=== PATIENT | female | born 1955 | race Caucasian/White ===

== ENCOUNTER 2019-11-04 22:28 | Inpatient (IN) | payer OTHER, MEDICAID ==
[~2019-11-04] VITALS: Ht 165.1 cm; Wt 116.4 kg
[2019-11-04 22:32] VITALS: BP 118/77
[2019-11-04] MEDS ORDERED: DRIZALMA SPRINK60 MG PO (22:39)
[2019-11-04] MEDS ORDERED: LEVO-T100 MCG PO (22:40)
[2019-11-04] MEDS ORDERED: TRADJENTA5 MG (22:40)
[2019-11-04] MEDS ORDERED: PRINIVIL20 MG PO (22:41)
[2019-11-04] MEDS ORDERED: SINGULAIR 10 MG10 M1 PO (22:42)
[2019-11-04] MEDS ORDERED: PRAMIPEXOLE ER1.5 MG PO (22:42)
[2019-11-04] MEDS ORDERED: FLEXERIL PO (22:42)
[2019-11-04 23:45] LABS: ABSOLUTE BASOPHILS 0.1 thou/uL (0.0-0.2); ABSOLUTE EOSINOPHILS 0.6 thou/uL (0.0-0.7); ABSOLUTE MONOCYTES 1.6 thou/uL (0.0-1.2); ABSOLUTE NEUTROPHILS 9.9 thou/uL (1.6-8.1); BASOPHILS 0.7 %; HEMATOCRIT 41.4 % (37.0-47.0); HEMOGLOBIN 13.6 gm/dL (12.0-15.0); LYMPHOCYTES 14.4 %; MCH 25.9 pg (26.0-34.0); MCHC 32.8 g/dL (28.0-37.0); MCV 79.1 fL (80.0-100.0); MPV 8.9 fl. (7.2-11.1); NUCLEATED RBCS 0 /100WBC; PLATELET COUNT* 299 thou/uL (150-400); POLYS 69.9 %; RBC 5.24 mil/uL (4.20-5.00); RDW-CV 17.5 % (10.5-14.5); WBC 14.2 thou/uL (4.0-11.0)
[2019-11-04 23:48] LABS: CREATININE 1.1 mg/dL (0.6-1.3); POTASSIUM 3.8 mmol/L (3.5-5.1)
[2019-11-04 23:50] LABS: INR 1.1
[2019-11-05 00:05] LABS: ALBUMIN 3.3 g/dL (3.4-5.0); MAGNESIUM 2.1 mg/dL (1.8-2.4); TOTAL BILIRUBIN 0.5 mg/dL (<0.1-1.0); TOTAL PROTEIN 7.1 g/dL (6.4-8.2)
[2019-11-05 03:19] LABS: URINE BLOOD NEGATIVE (Negative); URINE CLARITY CLEAR; URINE COLOR YELLOW; URINE GLUCOSE-RANDOM NEGATIVE (Negative); URINE KETONES NEGATIVE (Negative); URINE LEUKOCYTES-REFLEX NEGATIVE (Negative); URINE NITRITE-REFLEX NEGATIVE (Negative); URINE PROTEIN NEGATIVE (Negative); URINE SPECIFIC GRAVITY >= 1.030 (1.005-1.030); URINE UROBILINOGEN 0.2 E.U./dl (0.2-1.0)
[2019-11-05 03:22] LABS: URINE BILIRUBIN 1+ (Negative)
[2019-11-05 03:24] LABS: ICTOTEST (BILI CONFIRMATORY) Negative (Negative)
[2019-11-05 03:27] LABS: AMP/METHAMP Negative (Negative); BARBITURATES Negative (Negative); BENZODIAZEPINES Negative (Negative); COCAINE Negative (Negative); METHADONE Negative (Negative); OPIATES Negative (Negative); PCP Negative (Negative); THC Negative (Negative)
[2019-11-05 06:00] VITALS: BP 117/58
[2019-11-05 06:00] LABS: BE -3.9 mmol/L (-2 to +3)
[2019-11-05 06:04] LABS: PCO2 64.1 mmHg (35.0-45.0); PO2 146.3 mmHg (75.0-100.0); pH 7.209 (7.340-7.450)
[2019-11-05 09:25] LABS: BE 1.9 mmol/L (-2 to +3); PCO2 VENOUS 68.1 mmHg (41.0-51.0); PO2 VENOUS 29.9 mmHg (35.0-45.0)
[2019-11-05 09:42] LABS: CALCIUM 8.8 mg/dL (8.5-10.1); MAGNESIUM 2.1 mg/dL (1.8-2.4); POTASSIUM 4.6 mmol/L (3.5-5.1)
[2019-11-05 10:00] VITALS: BP 197/173
--- NOTE | 2019-11-05 13:24 | EKG ---
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 : 1955 Requested By: Pamela Montano Order Number: [id number] MD: Arsenio Barney Measurements Intervals [place] Rate: 94 P: 35 NM: 148 QRS: 21 QRSD: 96 T: -4 QT: 370 QTc: 463 Interpretive Statements Sinus rhythm Abnormal R-wave progression, early transition consider Inferior infarct, old No previous ECG available for comparison Electronically Signed On 11-05-2019 13:24:19 CDT by Arsenio Barney [email or web address] <ELECTRONICALLY SIGNED> By: Arsenio Barney MD, FAC 11/05/19 1324 2256 2256 Arsenio Barney MD, [facility] /EPI
--- NOTE | 2019-11-05 14:16 | 2DMMODE ---
[place] [address] 2 D/M-MODE ECHOCARDIOGRAM Name: MARENTYLER Aceves Room: [address] IN [facility]#: [id number] Admission: 11/05/19 Attend Phys: Maral Winkler, Discharge: Date of : 51 Date of Service: 11/05/19 1416 Report #: [id number] THIS REPORT FOR: cc: Essie Grewal MD, Sarah Beth MD Liston, Michael J. MD [facility] ~ APPROVED REPORT Study performed: 11/05/2019 09:58:15 EXAM: Comprehensive 2D, Doppler, and color-flow Echocardiogram Patient Location: In-Patient Room #: er Status: routine BSA: 2.22 HR: 100 bpm BP: 113/47 mmHg Rhythm: NSR Other Information Study Quality: Good Indications Dyspnea 2D Dimensions IVSd: 10.50 (7-11mm) LVOT Diam: 19.84 (18-24mm) LVDd: 44.52 mm PWd: 9.53 (7-11mm) Ascending Ao: 32.20 (22-36mm) LVDs: 26.78 (25-40mm) Aortic Root: 31.43 mm Volumes Left Atrial Volume (Systole) LA ESV Index: 19.30 mL/m2 Aortic Valve AoV Peak Diego.: 1.46 m/s AO Peak Gr.: 8.53 mmHg LVOT Max P.59 mmHg AO Mean Gr.: 4.55 mmHg LVOT Mean P.95 mmHg LVOT Max V: 1.28 m/s AO V2 VTI: 26.46 cm LVOT Mean V: 0.94 m/s MAHNAZ (VTI): 2.84 cm2 LVOT V1 VTI: 24.29 [place] [address] 2 D/M-MODE ECHOCARDIOGRAM Name: TYLER ENGEL Room: [address] IN [facility]#: [id number] Admission: 11/05/19 Attend Phys: Maral Winkler, Discharge: Date of : 51 Date of Service: 11/05/19 1416 Report #: [id number] TDI Medial E' Diego.: 0.09 m/s Lateral E' Diego.: 0.12 m/s Pulmonary Valve PV Peak Diego.: 1.11 m/s PV Peak Gr.: 4.89 mmHg Tricuspid Valve RAP Estimate: 5.00 mmHg TR Peak Gr.: 23.98 mmHg RVSP: 29.00 mmHg PA Pressure: 29.00 mmHg Left Ventricle The left ventricle is normal size. There is normal LV segmental wall motion. There is normal left ventricular wall thickness. Left ventricular systolic function is normal. LVEF is 60-65%. Transmitral Doppler flow pattern suggests impaired LV relaxation. Right Ventricle The right ventricle is normal size. The right ventricular systolic function is normal. Atria The left atrium size is normal. The right atrium size is normal. Aortic Valve The aortic valve is normal in structure. No aortic regurgitation is present. There is no aortic valvular stenosis. Mitral Valve The mitral valve is normal in structure. There is no mitral valve regurgitation noted. No evidence of mitral valve stenosis. Tricuspid Valve The tricuspid valve is normal in structure. Trace tricuspid regurgitation. No pulmonary hypertension. Pulmonic Valve The pulmonary valve is normal in structure. There is no pulmonic valvular regurgitation. Great Vessels The aortic root is normal in size. IVC is normal in size and collapses >50% [place] [address] 2 D/M-MODE ECHOCARDIOGRAM Name: TYLER ENGEL Room: [address]#: [id number] Admission: 11/05/19 Attend Phys: Maral Winkler, Discharge: Date of : 51 Date of Service: 11/05/19 1416 Report #: [id number] Pericardium There is no pericardial effusion. <Conclusion> The left ventricle is normal size. There is normal left ventricular wall thickness. Left ventricular systolic function is normal. LVEF is 60-65%. Transmitral Doppler flow pattern suggests impaired LV relaxation. Trace tricuspid regurgitation. No pulmonary hypertension. IVC is normal in size and collapses >50% with inspiration. <ELECTRONICALLY SIGNED> By: Yousif Brito MD, FACC 11/05/19 141 15 15 Yousif Brito MD, FACC /INF
[2019-11-05 14:44] VITALS: BP 119/63
[2019-11-05 16:25] VITALS: BP 107/63
[2019-11-05 16:40] VITALS: BP 132/68
[2019-11-05 20:00] VITALS: BP 108/57
[2019-11-06] VITALS (7 sets, daily range): BP systolic 87–144; BP diastolic 41–106
[2019-11-06 04:27] LABS: HEMATOCRIT 36.9 % (37.0-47.0); HEMOGLOBIN 11.9 gm/dL (12.0-15.0); MCH 25.8 pg (26.0-34.0); MCHC 32.3 g/dL (28.0-37.0); MCV 80.1 fL (80.0-100.0); MPV 8.7 fl. (7.2-11.1); RBC 4.6 mil/uL (4.20-5.00); RDW-CV 17.8 % (10.5-14.5)
[2019-11-06 04:39] LABS: CALCIUM 8.5 mg/dL (8.5-10.1); CREATININE 0.8 mg/dL (0.6-1.3); MAGNESIUM 2.1 mg/dL (1.8-2.4); POTASSIUM 4.7 mmol/L (3.5-5.1)
[2019-11-06 05:28] LABS: BE 0 mmol/L (-2 to +3); PCO2 48.1 mmHg (35.0-45.0); PO2 92.8 mmHg (75.0-100.0); pH 7.352 (7.340-7.450)
--- NOTE | 2019-11-06 14:05 | CON ---
[address] [address] CONSULTATION Name: TYLER ENGEL Ketan Room: [address] IN .#: [id number] Admission: 11/05/19 Attend Phys: Maral Winkler MD Discharge: Date of : 51 Report #: [id number] THIS REPORT FOR: //name// cc: Essie Grewal MD, Sarah Beth MD ~ THIS REPORT FOR: //name// CC: Maral Grewal DATE OF SERVICE: 11/06/2019 REQUESTING PHYSICIAN: Calvin Das MD INDICATION FOR CONSULTATION: Yiijs-nu-petbzer hypercarbic respiratory failure. HISTORY OF PRESENT ILLNESS: This is a 63-year-old female. She is a lifetime nonsmoker. She does have a history of bronchial asthma. I do not have all her previous records available; however, it appears that she has obstructive sleep apnea as well as obesity hypoventilation syndrome as well. There is mention of COPD on the records; however, I do not see any definite evidence of COPD. The patient is now admitted yesterday, presentation is with a syncopal episode as well as altered mental status. The patient had reported associated nausea and dizziness as well and was initially reported to be confused upon waking up. The patient did have an arterial blood gas performed when she was brought to this hospital, which does show a pH reduced to only 7.209 with a pCO2 of 64. The patient was placed on a BiPAP. The patient's pH has normalized by this morning with the use of BiPAP with pCO2 now at 48. She is now back on nasal cannula. At this time, she reports significant improvement in her complaints since yesterday. She, however, does not have full recollection of events from yesterday. She says that she has more shortness of breath compared with her baseline; however, this is better than yesterday. She does not have any increase in cough compared with her baseline. There is no sputum. There is no chest pain. She did not have upper respiratory complaints. There is no swelling of lower extremities. There is no calf pain. She says that her legs are fidgety and she was continuously moving her legs during my exam. The patient has had some occasional joint pains, which remain at baseline. REVIEW OF SYSTEMS: I asked her 12 other questions for review of systems. The patient's review of systems is negative except as mentioned above with the exception that the patient does have significant disturbed sleep at night as well as sleepiness during the day. PAST MEDICAL HISTORY: Bronchial asthma, obstructive sleep apnea, obesity hypoventilation syndrome. There is mention of COPD on her records; [place], [place] [address] CONSULTATION Name: TYLER ENGEL Room: [address] IN ..#: [id number] Admission: 11/05/19 Attend Phys: Maral Winkler MD Discharge: Date of : 51 Report #: [id number] do not see any definite evidence of COPD. The patient reports that she has recently had a PET scan based on which she was recommended a lung biopsy. Diabetes, questionable history of dementia, morbid obesity with a body mass index elevated to 43, hypothyroidism. SOCIAL HISTORY: She is a lifetime nonsmoker. No known history of heavy alcohol use or illegal drug use. FAMILY HISTORY: There is no pertinent family history. CURRENT MEDICATIONS: The list is in [employer], reviewed. HOME MEDICATIONS: The list also in [employer], reviewed. ALLERGIES: SHE IS REPORTED TO BE ALLERGIC TO AUGMENTIN. PHYSICAL EXAMINATION: GENERAL: She was lying down in bed and was having lunch, was fully awake and was not confused at this time. She was continuously moving her legs. VITAL SIGNS: Pulse of 93 and a blood pressure of 103/58, she is oxygenating in the mid 90s, she is on 2 liters nasal cannula, heart rate is 93. She is afebrile with a temperature of 36.8. HEENT: Head is normocephalic and atraumatic. She has a narrow airway. NECK: Does not show raised JVP, asymmetry, mass or lymph nodes. CHEST: Symmetrical expansion on inspection and palpation. On auscultation, breath sounds are bilaterally equal, decreased, expirations are prolonged. I do not hear any added sounds. HEART: Regular. There is no murmur. ABDOMEN: Soft and nontender. EXTREMITIES: Lower extremities show no edema and no calf tenderness. There is some evidence of chronic venous insufficiency. There are some small varicose veins noted. NEUROLOGICAL: She is moving all extremities bilaterally equally and spontaneously. There is no focal deficit identified. The patient does, however, continuously move her legs. SKIN: Dry, intact but has chronic venous changes LABORATORY DATA: The patient's CTA chest was performed yesterday. I reviewed both the reports as well as the films. There are bilateral radiopaque densities at bilateral lung bases. There are also chronic changes noted at apices, more on the right side than the left. There is a nodular density noted in the right lung field at around image 16 or 17 in series 4. The patient had a CT head, CT cervical spine as well as carotid Dopplers as well. These are all in [employer], reviewed all of these reports. The patient's CBC as well as chemistries are in [facility] and these are reviewed. Coagulation studies also in [facility] reviewed. Arterial blood gases as well as venous blood gas in [facility] [place] [address] CONSULTATION Name: TYLER ENGEL Ketan Room: [address] IN [facility]#: [id number] Admission: 11/05/19 Attend Phys: Maral Winkler MD Discharge: Date of : 51 Report #: [id number] as discussed above. Toxicology screen was negative. Urinalysis as well as COVID-19 screen with antigen in [facility] reviewed. ASSESSMENT AND PLAN: 1. Efozx-pq-wejfmca hypoxemic and hypercarbic respiratory failure. The patient has a history of obstructive sleep apnea and obesity hypoventilation syndrome as well as bronchial asthma in the background. The etiology of her decompensation yesterday is not fully defined at this time. The presentation, however, is consistent with either a neurological event or secondary to medication intake, less likely arrythmia. The patient's toxicology screen, however, is negative and while some of the medications she takes at home disease have a sedative effect, she does not report any change in medications yesterday. 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 2. Obstructive sleep apnea with obesity hypoventilation syndrome. The patient has a CPAP at home for the last 7 years. The patient does not appear to be using it. Also considering elevation in pCO2 on her last arterial blood gas, which appears to be now at her baseline, it does not appear likely to me that we will be able to obtain a full controlled with the use of CPAP. Therefore, I requested the case operator to arrange a Trilogy for her 3. Bronchial asthma. It does appear to me that the patient has had some bronchospasm and therefore, I will go ahead and start her on scheduled nebulized bronchodilators. She is on prednisone, change this to a taper and did order one dose of Solu-Medrol as well. I do not see any definite evidence of chronic obstructive pulmonary disease. 4. Lung nodule/apical scarring as see discussion above. There is a nodular structure in the right apex. The patient reports having had a PET scan. If the PET scan was positive in this region, then this could be an indication for doing a biopsy; however, I do not have the records available. We will request the records. 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 The patient reports that she sees Dr. Gifford. 5. Pulmonary infiltrates/atelectasis. There are bibasilar densities on her CT chest, which could indicate areas of atelectasis as well as infiltrates. I went ahead and ordered 5 doses of Zithromax. 6. Syncopal episode/altered mental status, etiology of the episode yesterday is not fully defined at this time. A neurological consult can be a consideration, I would defer to the primary service and arrhythmia could be a less likely, possible etiology of these complaints, however, I have not been informed of any arrhythmias detected on her telemetry since yesterday. 7. Chronic venous insufficiency. Recommend also obtaining venous Dopplers. [address] [address] CONSULTATION Name: TYLER ENGEL Room: [address] IN [facility].#: [id number] Admission: 11/05/19 Attend Phys: Maral Winkler MD Discharge: Date of : 51 Report #: [id number] The patient has had an echocardiogram performed and this is reviewed and shows a left ventricular ejection fraction of 60-65% with some diastolic dysfunction, but without significant elevation in right heart pressures. 8. Deep venous thrombosis prophylaxis, Lovenox. Thanks for this consultation. <ELECTRONICALLY SIGNED> By: Pete Verdin MD 11/06/19 1405 1250 [id number] Verdin MD /nt
[2019-11-07] VITALS: BP 115/49
[2019-11-07 04:00] VITALS: BP 151/78
[2019-11-07 09:00] VITALS: BP 156/58
[2019-11-07 13:22] VITALS: BP 94/66
[2019-11-07 17:10] VITALS: BP 116/57
[2019-11-07 20:25] VITALS: BP 88/52
[2019-11-08] VITALS (7 sets, daily range): BP systolic 103–143; BP diastolic 48–100
[2019-11-08 05:04] LABS: HEMATOCRIT 37.9 % (37.0-47.0); HEMOGLOBIN 12.4 gm/dL (12.0-15.0); MCH 26.2 pg (26.0-34.0); MCHC 32.7 g/dL (28.0-37.0); MCV 80.1 fL (80.0-100.0); MPV 9.3 fl. (7.2-11.1); NUCLEATED RBCS 0 /100WBC; PLATELET COUNT* 246 thou/uL (150-400); RBC 4.73 mil/uL (4.20-5.00); RDW-CV 17.1 % (10.5-14.5); WBC 13.8 thou/uL (4.0-11.0)
[2019-11-08 05:52] LABS: CALCIUM 9.5 mg/dL (8.5-10.1); CREATININE 0.9 mg/dL (0.6-1.3); MAGNESIUM 1.7 mg/dL (1.8-2.4); POTASSIUM 4.7 mmol/L (3.5-5.1); TOTAL BILIRUBIN 0.4 mg/dL (<0.1-1.0); TOTAL PROTEIN 6.9 g/dL (6.4-8.2)
[2019-11-08 06:46] LABS: ABSOLUTE LYMPHOCYTES 2.1 thou/uL (0.8-5.3); ABSOLUTE MONOCYTES 0.3 thou/uL (0.0-1.2); ABSOLUTE NEUTROPHILS 11.5 thou/uL (1.6-8.1); PLATELET ESTIMATE ADEQUATE
[2019-11-08] MEDS ORDERED: WELLBUTRIN 75 M75 M1 PO (08:54)
[2019-11-08] MEDS ORDERED: PREDNISONE 10 M10 MG PO (08:54)
[2019-11-08] MEDS ORDERED: TRAZODONE HCL100 MG PO (08:54)
[2019-11-08] MEDS ORDERED: HYDROXYZINE HCL25 M2 PO (08:54)
[2019-11-08] MEDS ORDERED: AZITHROMYCIN500 MG PO (08:54)
[2019-11-08] MEDS ORDERED: MIRAPEX 0.250.25 M1 PO (08:54)
[2019-11-08] MEDS ORDERED: BUPROPION XL300 MG PO (12:45)
== END 2019-11-08 14:24 | disposition home health service (06) | DRG 91 ==
LOC: M.ERS 22:28 → M.TBA-ER 11-05 02:11 → M.2W 11-05 09:47 → M.TBA-ER 11-05 09:47 → M.2W 11-05 16:38
PROVIDERS: Emergency Medicine; Internal Medicine; Internal Medicine Critical Care Medicine; ADMIT Internal Medicine; ATTEND Internal Medicine
PROC: 5A09357 Assistance with Respiratory Ventilation, Less than 24 Consecutive Hours, Continuous Positive Airway Pressure (ICD-10-PCS; principal; 2019-11-05)
PROC: 5A09357 Assistance with Respiratory Ventilation, Less than 24 Consecutive Hours, Continuous Positive Airway Pressure (ICD-10-PCS; 2019-11-06)
PROC: 5A09357 Assistance with Respiratory Ventilation, Less than 24 Consecutive Hours, Continuous Positive Airway Pressure (ICD-10-PCS; 2019-11-08)
DX: G92 Toxic encephalopathy (principal); J96.22 Acute and chronic respiratory failure with hypercapnia; J96.21 Acute and chronic respiratory failure with hypoxia; E87.2 Acidosis; J98.11 Atelectasis; E66.2 Morbid (severe) obesity with alveolar hypoventilation; Z68.41 Body mass index [BMI] 40.0-44.9, adult; E11.9 Type 2 diabetes mellitus without complications; F03.90 Unspecified dementia, unspecified severity, without behavioral disturbance, psychotic disturbance, mood disturbance, and anxiety; J44.9 Chronic obstructive pulmonary disease, unspecified; G25.81 Restless legs syndrome; E03.9 Hypothyroidism, unspecified; F41.1 Generalized anxiety disorder; T50.915A Adverse effect of multiple unspecified drugs, medicaments and biological substances, initial encounter; R91.1 Solitary pulmonary nodule; J98.4 Other disorders of lung; I87.2 Venous insufficiency (chronic) (peripheral); G47.00 Insomnia, unspecified; Z79.899 Other long term (current) drug therapy; Z88.1 Allergy status to other antibiotic agents; Z88.8 Allergy status to other drugs, medicaments and biological substances; Y92.89 Other specified places as the place of occurrence of the external cause